=== PATIENT | male | born 1985 | race American Indian/Alaskan Native ===

== ENCOUNTER 2017-06-25 08:02 | Outpatient (CLI) | payer MEDICARE ==
[2017-06-25] MEDS ORDERED: XYLOCAINE TOPICAL 4% TP ONE (08:16)
== END 2017-06-25 08:03 | disposition home or self-care (01) ==
LOC: WOUND 08:02
PROVIDERS: ATTEND Surgery
DX: L03.032 Cellulitis of left toe (principal); Z87.891 Personal history of nicotine dependence
CPT/HCPCS: 99215; G0463

== ENCOUNTER 2017-07-02 07:56 | Outpatient (CLI) | payer MEDICARE ==
[2017-07-02] MEDS ORDERED: XYLOCAINE TOPICAL 4% TP ONE ×2 (08:02→08:17)
== END 2017-07-02 07:57 | disposition home or self-care (01) ==
LOC: WOUND 07:56
PROVIDERS: ATTEND Surgery
DX: L02.612 Cutaneous abscess of left foot (principal); Z87.891 Personal history of nicotine dependence

== ENCOUNTER 2017-07-09 07:55 | Outpatient (CLI) | payer MEDICARE ==
[2017-07-09] MEDS ORDERED: XYLOCAINE TOPICAL 4% TP ONE ×2 (08:19→08:22)
[2017-07-09] MEDS ORDERED: SILVER NITRATE TP ONE ×2 (08:45→14:37)
== END 2017-07-09 07:56 | disposition home or self-care (01) ==
LOC: WOUND 07:55
PROVIDERS: ATTEND Surgery
DX: L02.612 Cutaneous abscess of left foot (principal); Z87.891 Personal history of nicotine dependence

== ENCOUNTER 2017-07-16 08:02 | Outpatient (CLI) | payer MEDICARE ==
[2017-07-16] MEDS ORDERED: XYLOCAINE TOPICAL 4% TP ONE (08:17)
== END 2017-07-16 08:03 | disposition home or self-care (01) ==
LOC: WOUND 08:02
PROVIDERS: ATTEND Surgery
DX: L02.612 Cutaneous abscess of left foot (principal); Z87.891 Personal history of nicotine dependence
CPT/HCPCS: 99214; G0463

== ENCOUNTER 2017-07-23 08:02 | Outpatient (CLI) | payer MEDICARE ==
[2017-07-23] MEDS ORDERED: XYLOCAINE TOPICAL 4% TP ONE ×2 (08:09→08:24)
== END 2017-07-23 08:03 | disposition home or self-care (01) ==
LOC: WOUND 08:02
PROVIDERS: ATTEND Surgery
DX: L02.612 Cutaneous abscess of left foot (principal); Z87.891 Personal history of nicotine dependence
CPT/HCPCS: 99213; G0463